=== PATIENT | male | born 1960 | race Caucasian/White ===

== ENCOUNTER 2018-08-04 03:04 | Emergency (ER) | payer SELFPAY ==
[~2018-08-04] VITALS: Ht 180.3 cm; Wt 97.5 kg
[2018-08-04 03:19] VITALS: BP 144/88
== END 2018-08-04 03:38 | disposition left against medical advice (07) ==
LOC: EDBD 03:04 → ER 03:10
DX: R07.89 Other chest pain (principal); R68.84 Jaw pain; Z53.21 Procedure and treatment not carried out due to patient leaving prior to being seen by health care provider